=== PATIENT | female | born 1950 | race Caucasian/White ===

== ENCOUNTER 2018-12-02 11:06 | Outpatient (CLI) | payer MEDICARE ==
--- NOTE | 2018-12-02 12:06 | RAD ---
EXAM: Thoracic spine 3 views: HISTORY: Thoracic spine pain COMPARISON: None FINDINGS: Mild vertical height loss of several of the mid thoracic vertebral bodies, age indeterminate, these h ave more of an old appearance. No evidence for acute fracture or dislocation involving the visualized spine. There are disc osteophytosis and facet arthrosis changes. No evidence for malalignment. No evidence for a bone lesion. IMPRESSION: Spondylosis. Mild vertical height loss of several mid thoracic vertebral bodies which have more of an old appearan ce.
--- NOTE | 2018-12-02 14:08 | BD ---
DEXA BONE DENSITY: HISTORY: Age-related osteoporosis. COMPARISON: None. FINDINGS: Lumbar Spine: BMD (g/cm2) L1 0.798 T-Score: -1.7 0.1 L2 0.836 T-Score: -1.7 0.3 L3 0.841 T-Score: -2.2 0.0 L4 0.723 T-Score: -3.1 0.8 L1-L4 0.799 T-Score: -2.3 0.2 Femoral Neck: 0.560 T-Score: -2.6 0.8 Total Femur: 0.702 T-Score: -2.0 0.5 Impression: Lumbar spine: WHO classification is osteopenia, fracture risk has increased. Femoral neck: WHO classification is osteoporosis. Fracture not reported because some T-scores are a t or below -2.5. POS: [facility]
== END 2018-12-02 11:07 | disposition home or self-care (01) ==
LOC: BICMAMMO 11:06
PROVIDERS: ATTEND Internal Medicine
DX: M81.0 Age-related osteoporosis without current pathological fracture (principal); M54.6 Pain in thoracic spine; M47.814 Spondylosis without myelopathy or radiculopathy, thoracic region; M85.88 Other specified disorders of bone density and structure, other site
CPT/HCPCS: 72072; 77080

== ENCOUNTER 2021-11-17 13:16 | Outpatient (CLI) | payer MEDICARE | END 2021-11-17 13:17 | disposition home or self-care (01) | LOC: TBSIIMAG 13:16 | PROVIDERS: ATTEND Neurological Surgery | DX: M54.6 Pain in thoracic spine (principal); M54.50 Low back pain, unspecified; M47.816 Spondylosis without myelopathy or radiculopathy, lumbar region; N28.1 Cyst of kidney, acquired; R91.8 Other nonspecific abnormal finding of lung field | CPT/HCPCS: 72146; 72148 ==